=== PATIENT | male | born 1950 | race Two or more races ===

== ENCOUNTER 2022-02-01 08:51 | Emergency (ER) | payer OTHER ==
[~2022-02-01] VITALS: Ht 167.6 cm; Wt 77.1 kg
[~2022-02-01 08:51] MED LIST: AMBIEN10 MG PO; ATACAND32 MG PO; CLONAZEPAM0.5 MG PO; EFFEXOR XR75 MG PO; INDOMETHACIN50 MG PO; LOSARTAN-HCTZ1 EAC1 PO; LOTREL 5-10 MG1 CAP PO; NAMENDA10 MG PO; NORVASC5 MG PO; PROVENTIL3 ML/2.5 M IH; ZITHROMAX500 MG PO; ZYNCOF 20-400120 ML PO
[2022-02-01] MEDS ORDERED: UROXATRAL10 MG PO (08:59)
[2022-02-01] MEDS ORDERED: ALBUTEROL0.63 MG/3 IH (16:01)
[2022-02-01] MEDS ORDERED: BENZONATATE200 M1 PO (16:01)
[2022-02-01] MEDS ORDERED: TAMS0.4C PO (16:04)
== END 2022-02-01 16:41 | disposition home or self-care (01) ==
LOC: ER 08:51
DX: R05.8 Other specified cough (principal); R53.81 Other malaise; R14.0 Abdominal distension (gaseous); N20.0 Calculus of kidney; N28.1 Cyst of kidney, acquired; N40.0 Benign prostatic hyperplasia without lower urinary tract symptoms; I70.90 Unspecified atherosclerosis; I10 Essential (primary) hypertension